=== PATIENT | male | born 1965 | race Caucasian/White ===

== ENCOUNTER 2017-09-12 01:49 | Inpatient (IN) | payer BC, OTHER ==
[~2017-09-12] VITALS: Ht 188 cm; Wt 85.3 kg
[2017-09-12 03:10] LABS: BASOPHIL % 0.7 % (0-2); PLATELET COUNT 176 x10^3mcL (130-400)
[2017-09-12 03:21] LABS: CALCIUM 7.9 mg/dL (8.5-10.1); CARBON DIOXIDE 17.8 mmol/L (21-32); CHLORIDE SERUM 104 mmol/L (98-107); CREATININE SERUM 1.1 mg/dL (0.7-1.3); GFR1 > 60 mL/min; GLUCOSE SERUM 166 mg/dL (74-106); POTASSIUM SERUM 3.4 mmol/L (3.5-5.1); SODIUM SERUM 139 mmol/L (136-145)
[2017-09-12 03:26] LABS: ALBUMIN 3.4 g/dL (3.4-5.0); ALKALINE PHOSPHATASE 72 U/L (46-116); BILIRUBIN TOTAL 0.59 mg/dL (0.20-1.00)
[2017-09-12 03:41] LABS: AST/SGOT 113 U/L (15-37)
[2017-09-12 03:43] LABS: TOTAL PROTEIN, SERUM 6.4 g/dL (6.4-8.2)
[2017-09-12 03:57] LABS: ALT/SGPT 40 U/L (16-63)
[2017-09-12] MEDS ORDERED: PRILOSEC OTC20 M1 PO (05:38)
[2017-09-12 07:40] LABS: FREE T4 1.12 ng/dL (0.76-1.46); FREE THYROXINE INDEX 3.4 ug/dL (1.4-4.5); T4(THYROXINE) 9.1 ug/dL (4.7-13.3)
[2017-09-12 07:45] LABS: CHOLESTEROL 177 mg/dL (<200); MAGNESIUM 2.1 mg/dL (1.8-2.4); PHOSPHOROUS 3.1 mg/dL (2.5-4.9)
[2017-09-12 07:54] LABS: T3 TOTAL 1.17 ng/mL
[2017-09-12 08:01] LABS: CHOLESTEROL/HDL RATIO 8.4; HDL CHOLESTEROL 21 mg/dL (40-60); TRIGLYCERIDES 1094 mg/dL (<150)
[2017-09-12 09:03] VITALS: BP 128/78
[2017-09-12 09:50] VITALS: BP 114/67
[2017-09-12 12:25] LABS: microscopic required? NO
[2017-09-12 13:16] LABS: UA SPECIFIC GRAVITY <=1.005 (1.005-1.035); urine erythrocyte NEGATIVE (NEGATIVE)
[2017-09-12 13:23] LABS: AMPHETAMINE QUAL UR NONE DETECTED (NEG <=1000)
[2017-09-12 14:27] VITALS: BP 100/55
[2017-09-12 15:07] LABS: CHOLESTEROL/HDL RATIO 4.2
[2017-09-12 17:15] VITALS: BP 96/57
[2017-09-12 20:33] VITALS: BP 101/57
[2017-09-13 05:27] VITALS: BP 93/56
[2017-09-13 07:01] LABS: CALCIUM 7.8 mg/dL (8.5-10.1); CHLORIDE SERUM 111 mmol/L (98-107); CREATININE SERUM 0.9 mg/dL (0.7-1.3); GFR1 > 60 mL/min; GLUCOSE SERUM 107 mg/dL (74-106); MAGNESIUM 1.9 mg/dL (1.8-2.4); PHOSPHOROUS 2.8 mg/dL (2.5-4.9); SODIUM SERUM 142 mmol/L (136-145)
[2017-09-13 08:27] LABS: BASOPHIL % 0.5 % (0-2); PLATELET COUNT 160 x10^3mcL (130-400); RED CELL DISTRIBUTION WIDTH 14.4 % (11.5-14.5)
[2017-09-13 08:33] VITALS: BP 116/82
[2017-09-13 10:55] VITALS: BP 116/82
== END 2017-09-13 12:00 | disposition home or self-care (01) | DRG 392 ==
LOC: ED 01:49 → DU 05:47
PROVIDERS: Emergency Medicine; Family Medicine; Internal Medicine Gastroenterology
PROC: 0DB68ZX Excision of Stomach, Via Natural or Artificial Opening Endoscopic, Diagnostic (ICD-10-PCS; principal; 2017-09-13 07:00)
DX: K21.0 Gastro-esophageal reflux disease with esophagitis (principal); M62.82 Rhabdomyolysis; F17.210 Nicotine dependence, cigarettes, uncomplicated; K44.9 Diaphragmatic hernia without obstruction or gangrene; K76.0 Fatty (change of) liver, not elsewhere classified; E78.1 Pure hyperglyceridemia; Z88.6 Allergy status to analgesic agent
CPT/HCPCS: 43235; 83880; 84439; 85378; J1200; J1610; J2250; J2270; J2310; J2405; J3010; J3490; J7030; Q0092; Q9967